=== PATIENT | male | born 1960 | race Caucasian/White ===

== ENCOUNTER → 2025-10-13 | Outpatient (CLI) | payer MEDICARE, OTHER, SELFPAY ==
[2025-10-13 23:37] LABS: Hematocrit 37.1 % (40-54); Hemoglobin 12.1 g/dL (13.0-16.5); Immature Granulocytes Count 0.010 X10^3/uL (0.0-0.0); Mean Corp Hgb Conc 32.6 g/dL (32-36); Mean Corpuscular Volume 87.5 fL (80-94); Mean Platelet Vol. 10.3 fl (6.2-12.0); NRBC Flagged by Analyzer 0 % (0-5); Platelet Count 244 K/mm3 (150-450); RBC Distribution Width CV 11.8 % (11.6-14.6); RBC Distribution Width SD 37.6 fl (35.1-43.9); Red Blood Count 4.24 M/mm3 (4.6-6.2); White Blood Count 3.4 K/mm3 (4.4-11.0)
[2025-10-14 00:33] LABS: AST(SGOT) 29 U/L (<=37); Alanine Aminotransfer ALT/SGPT 35 U/L (<=46); Albumin, Serum 4.0 g/dL (3.4-4.8); Alkaline Phosphatase 92 U/L (40-129); Anion Gap 9 (5-15); BUN 12 mg/dL (4-19); BUN/Creat Ratio 15.3 RATIO (10-20); Calcium,Total 9.0 mg/dL (7.6-11.0); Carbon Dioxide 28.3 mmol/L (21.0-32.0); Chloride 99 mmol/L (98-108); Cholesterol 140 mg/dL (<=200); Globulin 3.5 g/dL (2.2-4.2); Glucose 94 mg/dL (70-99); Low Density Lipoprotein Calc. 87 mg/dL; Potassium 4.2 mmol/L (3.3-5.1); Triglycerides 59 mg/dL; Very Low Density Lipoprotein 12 mg/dL (5-40); cholesterol:hdl ratio screen 3.49
[2025-10-14 00:34] LABS: PSA,Total - Annual Screen 2.64 ng/mL (0.02-4.00)
== END | disposition home or self-care (01) ==
PROVIDERS: Referring Provider Nurse Practitioner; Visit Provider Nurse Practitioner
DX: Z12.5 Encounter for screening for malignant neoplasm of prostate (principal); I63.9 Cerebral infarction, unspecified; R42 Dizziness and giddiness; R53.83 Other fatigue
CPT/HCPCS: 80053; 80061; 84153; 84443; 85025; G0103